=== PATIENT | male | born 1995 | race Caucasian/White ===

== ENCOUNTER 2016-05-30 02:44 | Emergency (ER) | payer OTHER ==
[~2016-05-30] VITALS: Ht 167.6 cm; Wt 61.4 kg
[2016-05-30 02:48] VITALS: BP 113/57; TEMP 97.2
[2016-05-30] MEDS ORDERED: CEPHALEXIN500 M1 PO (05:37)
[2016-05-30 05:42] VITALS: PULSE 88
== END 2016-05-30 05:47 | disposition home or self-care (01) ==
LOC: COL.ER 02:44
DX: S09.90XA Unspecified injury of head, initial encounter (principal); S02.5XXA Fracture of tooth (traumatic), initial encounter for closed fracture; S01.521A Laceration with foreign body of lip, initial encounter; S20.412A Abrasion of left back wall of thorax, initial encounter; S00.01XA Abrasion of scalp, initial encounter; Y04.2XXA Assault by strike against or bumped into by another person, initial encounter
CPT/HCPCS: J1885